=== PATIENT | male | born 1990 | race African-American/Black ===

== ENCOUNTER 2018-04-19 08:51 | Emergency (ER) | payer OTHER ==
[~2018-04-19] VITALS: Ht 180.3 cm; Wt 68.0 kg
[2018-04-19] MEDS ORDERED: MORPHINE SULFATE 10 MG/ML CPJ IM ONE (11:00)
[2018-04-19] MEDS ORDERED: KETOROLAC 30MG/ML VIAL IM ONE (11:00)
[2018-04-19 12:06] VITALS: BP 124/84
== END 2018-04-19 12:13 | disposition home or self-care (01) ==
LOC: ER 10:14
DX: S40.012A Contusion of left shoulder, initial encounter (principal); F12.10 Cannabis abuse, uncomplicated; V02.99XA Pedestrian with other conveyance injured in collision with two- or three-wheeled motor vehicle, unspecified whether traffic or nontraffic accident, initial encounter; Y93.89 Activity, other specified; Y92.89 Other specified places as the place of occurrence of the external cause; Y99.8 Other external cause status
CPT/HCPCS: 71045; 73030; 96372; 99284; J1885; J2270

== ENCOUNTER 2019-01-16 12:01 | Emergency (ER) | payer MEDICAID ==
[~2019-01-16] VITALS: Ht 180.3 cm; Wt 65.0 kg
[2019-01-16] MEDS ORDERED: TRAMADOL 50MG TABLET PO ONE (13:00)
[2019-01-16] MEDS ORDERED: KETOROLAC 60MG/2ML VIAL IM ONE (13:00)
[2019-01-16 14:28] VITALS: BP 116/85
== END 2019-01-16 14:32 | disposition home or self-care (01) ==
LOC: ER 12:01
DX: M25.562 Pain in left knee (principal); M79.642 Pain in left hand
CPT/HCPCS: 73120; 73700; 96372; 99284; J1885

== ENCOUNTER 2019-01-27 20:14 | Emergency (ER) | payer MEDICAID ==
[~2019-01-27] VITALS: Ht 180.3 cm; Wt 75.0 kg
[2019-01-27 22:59] VITALS: BP 134/76
== END 2019-01-27 23:01 | disposition home or self-care (01) ==
LOC: ER 20:14
DX: L03.012 Cellulitis of left finger (principal); F12.10 Cannabis abuse, uncomplicated
CPT/HCPCS: 29130; 99283

== ENCOUNTER 2019-11-10 17:10 | Emergency (ER) | payer MEDICAID, OTHER ==
[~2019-11-10] VITALS: Ht 180.3 cm; Wt 73.0 kg
[2019-11-10 20:37] VITALS: BP 112/70
== END 2019-11-10 20:38 | disposition home or self-care (01) ==
LOC: ER 17:10
DX: S16.1XXA Strain of muscle, fascia and tendon at neck level, initial encounter (principal); V49.49XA Driver injured in collision with other motor vehicles in traffic accident, initial encounter; Y93.89 Activity, other specified; Y92.89 Other specified places as the place of occurrence of the external cause; Y99.8 Other external cause status; F12.10 Cannabis abuse, uncomplicated
CPT/HCPCS: 99282; 99283

== ENCOUNTER 2021-11-07 09:30 | Emergency (ER) | payer MEDICAID, OTHER ==
[~2021-11-07] VITALS: Ht 180.3 cm; Wt 70.0 kg
[2021-11-07 09:34] VITALS: BP 122/86
[2021-11-07] MEDS ORDERED: LIDOCAINE HCL/PF 1% 10 MG/ML 5ML VIAL INFIL ONE (09:45)
[2021-11-07] MEDS ORDERED: BACITRACIN ZINC OINT UDPKT TOP ONE (09:45)
[2021-11-07] MEDS ORDERED: LIDOCAINE HCL 1% 10 MG/ML 10ML VIAL INJ NR (10:00)
== END 2021-11-07 11:11 | disposition home or self-care (01) ==
LOC: ER 09:30
DX: S61.411A Laceration without foreign body of right hand, initial encounter (principal); Z98.890 Other specified postprocedural states; Y04.0XXA Assault by unarmed brawl or fight, initial encounter; Y93.89 Activity, other specified; Y92.89 Other specified places as the place of occurrence of the external cause; Y99.8 Other external cause status
CPT/HCPCS: 12001; 73120; 99283; J3490

== ENCOUNTER 2021-11-15 16:49 | Emergency (ER) | payer MEDICAID ==
[~2021-11-15] VITALS: Ht 180.3 cm; Wt 72.0 kg
[2021-11-15 17:04] VITALS: BP 103/55
== END 2021-11-15 17:45 | disposition home or self-care (01) ==
LOC: ER 17:04
DX: Z48.02 Encounter for removal of sutures (principal)
CPT/HCPCS: 99281

== ENCOUNTER 2021-11-20 10:36 | Emergency (ER) | payer MEDICAID ==
[~2021-11-20] VITALS: Ht 180.3 cm; Wt 70.0 kg
[2021-11-20 16:49] VITALS: BP 126/70
== END 2021-11-20 16:50 | disposition home or self-care (01) ==
LOC: ER 11:35
DX: S40.811A Abrasion of right upper arm, initial encounter (principal); S16.1XXA Strain of muscle, fascia and tendon at neck level, initial encounter; F12.10 Cannabis abuse, uncomplicated; V43.53XA Car driver injured in collision with pick-up truck in traffic accident, initial encounter; Y93.89 Activity, other specified; Y92.488 Other paved roadways as the place of occurrence of the external cause
CPT/HCPCS: 71045; 72128; 73090; 93005; 99285

== ENCOUNTER 2023-08-29 14:01 | Emergency (ER) | payer MEDICAID, OTHER ==
[~2023-08-29] VITALS: Ht 180.3 cm; Wt 79.0 kg
[2023-08-29 14:19] VITALS: TEMP 98.1; O2SAT 99
[2023-08-29 14:39] LABS: CLARITY URINE CLEAR (CLEAR); COLOR URINE YELLOW (YELLOW); GLUCOSE URINE NEGATIVE (NEGATIVE); KETONES URINE NEGATIVE (NEGATIVE); LEUKOCYTE ESTERASE URINE NEGATIVE (NEGATIVE); NITRITE URINE NEGATIVE (NEGATIVE); OCCULT BLOOD URINE 1+ (NEGATIVE); PH URINE 5.5 (4.5-8.0); PROTEIN URINE NEGATIVE (NEGATIVE); SPECIFIC GRAVITY URINE 1.027 (1.005-1.030)
[2023-08-29 14:45] LABS: BASOPHILS % 0.2 % (0.0-2.0); EOSINOPHILS % 0.6 % (0.0-5.0); HEMATOCRIT. 43.4 % (42.0-52.0); HEMOGLOBIN. 14.5 g/dL (14.0-18.0); LYMPHOCYTES % 20.8 % (20.0-50.0); MEAN CORPUSCULAR HEMOGLOBIN 32.2 pg (28.0-32.0); MEAN CORPUSCULAR HGB CONC 33.5 g/dL (31.0-37.0); MEAN CORPUSCULAR VOLUME 96.1 fL (80.0-94.0); MEAN PLATELET VOLUME 7.2 fl (7.4-10.4); MONOCYTES % 13.1 % (2.0-8.0); NEUTROPHILS % 65.3 % (40.0-76.0); PLATELET 166 x1000/uL (130-400); RED BLOOD CELL COUNT 4.51 mill/uL (4.7-6.1); RED CELL DISTRIBUTION WIDTH 13.9 % (11.6-14.6); WHITE BLOOD COUNT 4.3 x1000/uL (4.5-11.0)
[2023-08-29 14:49] LABS: RBC URINE 0-2 /hpf (0-2); WBC URINE 0-2 /hpf (0-2)
[2023-08-29 14:50] LABS: BACTERIA URINE RARE; SQUAMOUS EPITHELIAL CELL URINE RARE /lpf (RARE/1+); YEAST URINE NONE SEEN
[2023-08-29 14:57] LABS: ALANINE AMINOTRANSFERASE 15 IU/L (10-49); ALBUMIN 4.2 g/dL (3.2-4.8); ASPARTATE AMINOTRANSFERASE 25 IU/L (<34); BILIRUBIN TOTAL 0.4 mg/dL (0.1-1.0); CALCIUM 9.5 mg/dL (8.7-10.4); CARBON DIOXIDE 30 mEq/L (21-32); CHLORIDE 107 mEq/L (98-107); CREATININE 0.8 mg/dL (0.6-1.3); GLUCOSE 96 mg/dL (70-105); POTASSIUM 4.6 mEq/L (3.5-5.1); PROTEIN TOTAL 8.1 g/dL (6.0-8.3); SODIUM 139 mEq/L (136-145); UREA NITROGEN BLOOD 9 mg/dL (9-23)
[2023-08-29 15:15] VITALS: BP 105/58; PULSE 76; RESP 20
[2023-08-29] MEDS ORDERED: KETOROLAC 30MG/ML VIAL IM ONE ×2 (15:15→17:15)
== END 2023-08-29 17:25 | disposition home or self-care (01) ==
LOC: ER 14:01
DX: R10.9 Unspecified abdominal pain (principal); R11.0 Nausea; R19.7 Diarrhea, unspecified; F12.90 Cannabis use, unspecified, uncomplicated
CPT/HCPCS: 99285; 74176; 80053; 81003; 83690; 85025; 36415; 96372; J1885